=== PATIENT | female | born 1980 | race Caucasian/White ===

== ENCOUNTER 2016-04-21 02:30 | Emergency (ER) | payer OTHER ==
[2016-04-21 03:33] LABS: Add Diff/Slide Review? Slide Review Added; Comments Flag Yes; Hematocrit 44 % (35-47); Hemoglobin 14.4 g/dl (12.0-16.0); Mean Corpuscular HGB Conc 33 g/dl (31-36); Mean Corpuscular Hemoglobin 28 pg (27-31); Mean Corpuscular Volume 84 fL (80-97); Mean Platelet Volume 8 um3 (7.4-10.4); Red Blood Count 5.22 10^6/ul (4.0-5.4); Red Cell Distribution Width 15 % (10.5-15); White Blood Count 10.8 10^3/ul (3.5-10.8)
[2016-04-21 03:43] LABS: ALT 14 U/L (7-52); Albumin 4.1 g/dL (3.2-5.2); Alkaline Phosphatase 68 U/L (34-104); BUN/Creatinine Ratio 13.3 (8-20); Blood Urea Nitrogen 12 mg/dL (6-24); CO2 Carbon Dioxide 22 mmol/L (22-32); Calcium 9.5 mg/dL (8.6-10.3); Chloride 99 mmol/L (101-111); EGFR African American 91.6 (>60); EGFR Non-African American 71.3 (>60); Globulin 3.4 g/dL (2-4); Glucose 349 mg/dL (70-100); Sodium 129 mmol/L (133-145); Total Protein 7.5 g/dL (6.4-8.9)
[2016-04-21 03:45] LABS: Troponin I 0.02 ng/mL (<0.04)
[2016-04-21 04:07] LABS: TSH (Thyroid Stimulating Horm) 7.78 mcIU/mL (0.34-5.60)
--- NOTE | 2016-04-21 04:30 | ED ---
Alison Mccoy Rebecca, scribed for Jaden Felipe MD on 04/21/16 at 0254 . HPI Chest Pain - HPI Summary HPI Summary: Pt is a 35 y/o F who presents to ED c/o CP. Da Silva began suddenly 2 weeks ago and has been intermittent since onset, worsening today. Pain is midsternal without radiation, characterized as tightness and ranked 5/10. Sx aggravated and alleviated by nothing. Additionally c/o SOB, nonproductive cough, blurry vision and facial tingling. Has not been evaluated by her PCP for sx. - History of Current Complaint Chief Complaint: EDGeneral Hx Obtained From: Patient Onset/Duration: Started Weeks Ago - 2 weeks ago, Still Present Timing: Intermittent Initial Severity: Moderate Current Severity: Moderate Pain Intensity: 5 Pain Scale Used: 0-10 Numeric Chest Pain Location: Mid Sternal Chest Pain Radiates: No Character: Tightness Aggravating Factor(s): Nothing Alleviating Factor(s): Nothing Associated Signs and Symptoms: Positive: Vision Changes - blurry, Tingling - facial, Shortness of Breath, Nonproductive Cough - Allergy/Home Medications Allergies/Adverse Reactions: Allergies Allergy/AdvReac Type Severity Reaction Status Date / Time Amoxicillin Allergy Severe Anaphylatic Verified 12/12/15 13:07 Shock Penicillins Allergy Severe Anaphylatic Verified 12/12/15 13:07 Shock PMH/Surg Hx/FS Hx/Imm Hx Endocrine/Hematology History: Reports: Hx Diabetes - TYPE 2 Denies: Hx Thyroid Disease Cardiovascular History: Reports: Hx Hypertension Respiratory History: Denies: Hx Asthma, Hx Chronic Obstructive Pulmonary Disease (COPD) GI History: Denies: Hx Ulcer - Surgical History Surgery Procedure, Year, and Place: . 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 , Hx Shingles Denies: Hx Clostridium Difficile, Hx Hepatitis, Hx Human Immunodeficiency Virus (HIV), Hx Tuberculosis, Hx Known/Suspected VRE, Hx Known/Suspected VRSA, History Other Infectious Disease, Traveled Outside the [place] in Last 30 Days - Family History Known Family History: Positive: Hypertension, Diabetes Negative: Blood Disorder - Social History Alcohol Use: Occasionally Hx Substance Use: No Substance Use Type: Reports: None Substance Use Comment - Amount & Last Used: last used last night Hx Tobacco Use: Yes Smoking Status (MU): Light Every Day Tobacco Smoker Type: Cigarettes Amount Used/How Often: 5 CIG/DAY Length of Time of Smoking/Using Tobacco: 20 years Have You Smoked in the Last Year: Yes Review of Systems Positive: Blurred Vision Positive: Chest Pain - midsternal Positive: Shortness Of Breath, Cough - nonproductive Neurological: Other - Facial tingling All Other Systems Reviewed And Are Negative: Yes Physical Exam Triage Information Reviewed: Yes Vital Signs On Initial Exam: Initial Vitals Temp Pulse Resp BP Pulse Ox 97.2 F 90 16 176/93 100 04/21/16 02:30 04/21/16 02:30 04/21/16 02:30 04/21/16 02:30 04/21/16 02:30 Vital Signs Reviewed: Yes Appearance: Positive: No Pain Distress, Obese Skin: Positive: Warm Eyes: Positive: BELIA ENT: Positive: Hearing grossly normal Neck: Positive: Supple Respiratory/Lung Sounds: Positive: Clear to Auscultation, Breath Sounds Present Cardiovascular: Positive: Normal Abdomen Description: Positive: Nontender, No Organomegaly, Soft Bowel Sounds: Positive: Present Musculoskeletal: Positive: Strength/ROM Intact Neurological: Positive: Sensory/Motor Intact Psychiatric: Positive: Affect/Mood Appropriate Diagnostics - Vital Signs Vital Signs Temp Pulse Resp BP Pulse Ox 04/21/16 02:48 93 15 100 04/21/16 02:46 158/94 04/21/16 02:30 97.2 F 90 16 176/93 100 - Laboratory Lab Results: Lab Results 04/21/16 04/21/16 04/21/16 Range/Units 03:00 03:00 03:00 WBC 10.8 (3.5-10.8) 10^3/ul RBC 5.22 (4.0-5.4) 10^6/ul Hgb 14.4 (12.0-16.0) g/dl Hct 44 (35-47) % MCV 84 (80-97) fL MCH 28 (27-31) pg MCHC 33 (31-36) g/dl RDW 15 (10.5-15) % Plt Count 234 (150-450) 10^3/ul MPV 8 (7.4-10.4) um3 Neut % (Auto) 60.2 (38-83) % Lymph % (Auto) 33.9 (25-47) % [place] % (Auto) 4.6 (1-9) % Eos % (Auto) 1.1 (0-6) % Baso % (Auto) 0.2 (0-2) % Absolute Neuts (auto) 6.5 (1.5-7.7) 10^3/ul Absolute Lymphs (auto) 3.7 (1.0-4.8) 10^3/ul Absolute Monos (auto) 0.5 (0-0.8) 10^3/ul Absolute Eos (auto) 0.1 (0-0.6) 10^3/ul Absolute Basos (auto) 0 (0-0.2) 10^3/ul Absolute Nucleated RBC 0 10^3/ul Nucleated RBC % 0 Sodium 129 L (133-145) mmol/L Potassium TNP Chloride 99 L (101-111) mmol/L Carbon Dioxide 22 (22-32) mmol/L Anion Gap TNP BUN 12 (6-24) mg/dL Creatinine 0.90 (0.51-0.95) mg/dL Est GFR ( Amer) 91.6 (>60) Est GFR (Non-Af Amer) 71.3 (>60) BUN/Creatinine Ratio 13.3 (8-20) Glucose 349 H (70-100) mg/dL Lactic Acid 2.3 H* (0.5-2.0) mmol/L Calcium 9.5 (8.6-10.3) mg/dL Magnesium TNP Total Bilirubin 0.40 (0.2-1.0) mg/dL AST TNP ALT 14 (7-52) U/L Alkaline Phosphatase 68 (34-104) U/L Troponin I 0.02 (<0.04) ng/mL Total Protein 7.5 (6.4-8.9) g/dL Albumin 4.1 (3.2-5.2) g/dL Globulin 3.4 (2-4) g/dL Albumin/Globulin Ratio 1.2 (1-3) TSH 7.78 H (0.34-5.60) mcIU/mL Influenza A (Rapid) (Negative) Influenza B (Rapid) (Negative) 04/21/16 Range/Units 03:30 WBC (3.5-10.8) 10^3/ul RBC (4.0-5.4) 10^6/ul Hgb (12.0-16.0) g/dl Hct (35-47) % MCV (80-97) fL MCH (27-31) pg MCHC (31-36) g/dl RDW (10.5-15) % Plt Count (150-450) 10^3/ul MPV (7.4-10.4) um3 Neut % (Auto) (38-83) % Lymph % (Auto) (25-47) % [place] % (Auto) (1-9) % Eos % (Auto) (0-6) % Baso % (Auto) (0-2) % Absolute Neuts (auto) (1.5-7.7) 10^3/ul Absolute Lymphs (auto) (1.0-4.8) 10^3/ul Absolute Monos (auto) (0-0.8) 10^3/ul Absolute Eos (auto) (0-0.6) 10^3/ul Absolute Basos (auto) (0-0.2) 10^3/ul Absolute Nucleated RBC 10^3/ul Nucleated RBC % Sodium (133-145) mmol/L Potassium Chloride (101-111) mmol/L Carbon Dioxide (22-32) mmol/L Anion Gap BUN (6-24) mg/dL Creatinine (0.51-0.95) mg/dL Est GFR ( Amer) (>60) Est GFR (Non-Af Amer) (>60) BUN/Creatinine Ratio (8-20) Glucose (70-100) mg/dL Lactic Acid (0.5-2.0) mmol/L Calcium (8.6-10.3) mg/dL Magnesium Total Bilirubin (0.2-1.0) mg/dL AST ALT (7-52) U/L Alkaline Phosphatase (34-104) U/L Troponin I (<0.04) ng/mL Total Protein (6.4-8.9) g/dL Albumin (3.2-5.2) g/dL Globulin (2-4) g/dL Albumin/Globulin Ratio (1-3) TSH (0.34-5.60) mcIU/mL Influenza A (Rapid) Negative (Negative) Influenza B (Rapid) Negative (Negative) Result Diagrams: 04/21/16 03:00 04/21/16 04:15 Lab Statement: Any lab studies that have been ordered have been reviewed, and results considered in the medical decision making process. - EKG 0234 Cardiac Rate: NL - 91 bpm EKG Rhythm: Sinus Rhythm EKG Interpretation: RBBB, no acute ischemia Re-Evaluation - Re-Evaluation First Eval Re-Evaluation Time: 04:28 Change: Improved Comment: Pt is feeling significantly better, will be d/c to home. She understands and agrees to plan. Chest Pain Course/Dx - Course Assessment/Plan: Pt is a 35 y/o F who presents to ED with a CC of midsternal CP intermittently for the past 2 weeks. Additionally c/o blurred vision, SOB, facial tingling and nonproductive cough. Pt will be d/c to home with a dx of viral syndrome. - Diagnoses Provider Diagnoses: Viral syndrome Discharge - Discharge Plan Condition: Stable Disposition: HOME Patient Education Materials: Viral Syndrome (ED) Referrals: Santiago BRENNER,Juan Leslie [Primary Care Provider] - 3 Days (Follow up with your primary care physician in 3 days. ) The documentation as recorded by the Alison cunha Rebecca accurately reflects the service I personally performed and the decisions made by me, Jaden Felipe MD.
[2016-04-21 04:35] LABS: Magnesium 1.7 mg/dL (1.9-2.7)
[2016-04-21 04:46] VITALS: BP 157/99
== END 2016-04-21 04:45 | disposition home or self-care (01) ==
LOC: ED 02:30
DX: B34.9 Viral infection, unspecified (principal); I10 Essential (primary) hypertension; E11.9 Type 2 diabetes mellitus without complications; Z88.0 Allergy status to penicillin; F17.210 Nicotine dependence, cigarettes, uncomplicated; I45.10 Unspecified right bundle-branch block
CPT/HCPCS: 36415; 80053; 83605; 83735; 84443; 84484; 85025; 87502; 93005; 99282

== ENCOUNTER 2016-11-02 18:42 | Emergency (ER) | payer OTHER ==
[2016-11-02 18:51] VITALS: BP 141/87
--- NOTE | 2016-11-02 20:19 | UC ---
Bambi Mccoy SooYoung, scribed for John Campos MD on 11/02/16 at 1956 . Abdominal Pain Female HPI - HPI Summary HPI Summary: A 36 y/o F presents to [facility] with c/o umbilical stomach ache for past 5 days. Associated sx: fever maxT of 102 F, chills, n/v/d, malaise, sinus pain onset 1 day. Denies: melena. She states she's been having sulfur smelling burps. She has some Zofran at home which helped but relief didn't last very long. No one else at home is sick. Denies PMHx: colitis. Denies prev abd surgeries other than . Contacted her PCP, but wasn't able to see her. - History of Current Complaint Chief Complaint: UCGeneralIllness Stated Complaint: STOMACH ACHE Time Seen by Provider: 11/02/16 19:53 Hx Obtained From: Patient Hx Last Menstrual Period: 10/07/16 Onset/Duration: Gradual Onset, Lasting Days - onset 5 days ago, Still Present Timing: Constant Severity Currently: Moderate Pain Intensity: 5 Pain Scale Used: 0-10 Numeric Location: Other - umbilical Character: Aching, Dull, Sharp Alleviating Factor(s): Medications - Zofran Associated Signs and Symptoms: Positive: Fever, Nausea, Vomiting, Diarrhea, Other: - pos: chills, malaise. Negative: Blood in Stool Allergies/Adverse Reactions: Allergies Allergy/AdvReac Type Severity Reaction Status Date / Time Amoxicillin Allergy Severe Anaphylatic Verified 12/12/15 13:07 Shock Penicillins Allergy Severe Anaphylatic Verified 12/12/15 13:07 Shock PMH/Surg Hx/FS Hx/Imm Hx Previously Healthy: No Endocrine History: Diabetes Cardiovascular History: Hypertension - Surgical History Surgical History: Yes Surgery Procedure, Year, and Place: . TUBAL LIGATION - Family History Known Family History: Positive: Hypertension, Diabetes Negative: Blood Disorder - Social History Occupation: Employed Full-time Lives: With Family Alcohol Use: Occasionally Alcohol Amount: one can beer every other day Substance Use Type: None Substance Use Comment - Amount & Last Used: last used last night Smoking Status (MU): Light Every Day Tobacco Smoker Type: Cigarettes Amount Used/How Often: 5 CIG/DAY Length of Time of Smoking/Using Tobacco: 20 years Have You Smoked in the Last Year: Yes Household Exposure Type: Cigarettes - Immunization History Most Recent Influenza Vaccination: 2014 Most Recent Tetanus Shot: UTD Most Recent Pneumonia Vaccination: none Review of Systems Constitutional: Fever, Chills, Fatigue - malaise Skin: Negative Eyes: Negative ENT: Negative Respiratory: Negative Cardiovascular: Negative Gastrointestinal: Abdominal Pain, Vomiting, Diarrhea, Nausea, Other - neg: melena Genitourinary: Negative Motor: Negative Neurovascular: Negative Musculoskeletal: Negative Neurological: Negative Psychological: Negative All Other Systems Reviewed And Are Negative: Yes Physical Exam Triage Information Reviewed: Yes Appearance: No Pain Distress, Ill-Appearing - mildly Vital Signs: Initial Vital Signs Temp 97.5 F 11/02/16 18:48 Pulse 93 11/02/16 18:48 Resp 17 11/02/16 18:48 BP 141/87 11/02/16 18:48 Pulse Ox 100 11/02/16 18:48 Vital Signs Reviewed: Yes Eyes: Positive: Other: - EOMI/BELIA ENT: Positive: Hearing grossly normal Neck: Positive: Supple, Nontender Respiratory: Positive: Chest non-tender, Lungs clear, Normal breath sounds Cardiovascular: Positive: RRR Abdomen Description: Positive: Soft, Other: - minimal epigastric tenderness Bowel Sounds: Positive: Present Musculoskeletal: Positive: Strength Intact, ROM Intact Neurological Exam: Normal - sensory/motor intact Neurological: Positive: Alert - A&Ox3 Psychological: Positive: Age Appropriate Behavior Skin Exam: Normal - warm, dry, color reflects adequate perfusion Abd Pain Female Course/Dx - Course Course Of Treatment: Pt medications reviewed this visit. Elevated BP but has current hypertension diagnosis. DUE TO FEVER AND DURATION OF SX, WILL TREAT WITH CIPRO 500MG PO BID X 5 DAYS. F/U PMD. PATIENT WILL GO TO ED IF WORSE. - Differential Dx/Diagnosis Provider Diagnoses: DEHYDRATION. VOMITING AND DIARRHEA WITH FEVER X 5 DAYS. Discharge - Discharge Plan Condition: Stable Disposition: HOME Prescriptions: Ciprofloxacin TAB* [Cipro 500 MG TAB*] 500 mg PO BID #10 tab Ondansetron ODT TAB* [Zofran 4 MG Odt TAB*] 4 mg PO Q6H PRN #10 tab.odt PRN Reason: Nausea Patient Education Materials: Acute Nausea and Vomiting (ED), Acute Diarrhea (ED ), Fever in Adults (ED) Forms: *Work Release Referrals: Santiago BRENNER,Juan Leslie [Primary Care Provider] - Additional Instructions: FOLLOW UP WITH YOUR DOCTOR. GO TO THE EMERGENCY DEPARTMENT FOR ANY WORSENING OF YOUR CONDITION; PAIN, FEVER , DEHYDRATION OR QUESTIONS OR CONCERNS. The documentation as recorded by the Bambi cunha SooYoung accurately reflects the service I personally performed and the decisions made by me, John Campos MD.
== END 2016-11-02 20:17 | disposition home or self-care (01) ==
LOC: UCEAST 18:42
DX: E86.0 Dehydration (principal); R11.10 Vomiting, unspecified; R19.7 Diarrhea, unspecified; R50.9 Fever, unspecified; E11.9 Type 2 diabetes mellitus without complications; I10 Essential (primary) hypertension; Z88.0 Allergy status to penicillin; F17.210 Nicotine dependence, cigarettes, uncomplicated
CPT/HCPCS: 99211; G0463

== ENCOUNTER 2016-11-06 11:32 | Emergency (ER) | payer OTHER ==
[2016-11-06 12:21] VITALS: BP 130/85
--- NOTE | 2016-11-06 12:55 | UC ---
Abdominal Pain Female HPI - HPI Summary HPI Summary: Nausea with loss of appetite starting 10 days ago, vomting multiple times per day starting 7 days ago. All recent vomiting has been bilious, denies blood in vomit or stool. No melena. Reports fever and chills without clear measurement of time or temperature. Seen here about 5 days ago, rx with cipro and zofran. Went to [facility] ED 2 days ago because of uncontrolled vomiting, contrast CT and abd US were negative. Returns here today because sx feel no better. Marked epigastric pain with bilious vomiting x 2 today. - History of Current Complaint Chief Complaint: UCGI Stated Complaint: ABD PAIN Time Seen by Provider: 11/06/16 12:40 Hx Obtained From: Patient Hx Last Menstrual Period: 09/2716 ?: No Onset/Duration: Gradual Onset, Lasting Weeks Timing: Constant Severity Initially: Mild Severity Currently: Moderate Location: Epigastric Radiates: No Character: Aching, Burning, Cramping, Sharp Aggravating Factor(s): Food, Movement Alleviating Factor(s): Nothing Associated Signs and Symptoms: Positive: Fever, Nausea, Vomiting. Negative: Blood in Stool, Urinary Symptoms Allergies/Adverse Reactions: Allergies Allergy/AdvReac Type Severity Reaction Status Date / Time Amoxicillin Allergy Severe Anaphylatic Verified 11/06/16 12:21 Shock Penicillins Allergy Severe Anaphylatic Verified 11/06/16 12:21 Shock PMH/Surg Hx/FS Hx/Imm Hx - Additional Past Medical History Additional PMH: Hx MRSA Endocrine History: Diabetes - Surgical History Surgical History: Yes Surgery Procedure, Year, and Place: . TUBAL LIGATION - Family History Known Family History: Positive: Hypertension, Diabetes Negative: Blood Disorder - Social History Alcohol Use: Occasionally Alcohol Amount: one can beer every other day Substance Use Type: None Substance Use Comment - Amount & Last Used: last used last night Smoking Status (MU): Light Every Day Tobacco Smoker Type: Cigarettes Amount Used/How Often: 5 CIG/DAY Length of Time of Smoking/Using Tobacco: 20 years Have You Smoked in the Last Year: Yes Household Exposure Type: Cigarettes - Immunization History Most Recent Influenza Vaccination: 2014 Most Recent Tetanus Shot: UTD Most Recent Pneumonia Vaccination: none Review of Systems Constitutional: Fever, Chills, Fatigue Skin: Negative Eyes: Negative ENT: Negative Respiratory: Negative Cardiovascular: Negative Gastrointestinal: Abdominal Pain, Vomiting, Nausea Genitourinary: Negative Motor: Negative Neurovascular: Negative Musculoskeletal: Negative Neurological: Negative Psychological: Negative All Other Systems Reviewed And Are Negative: Yes Physical Exam Triage Information Reviewed: Yes Appearance: Obese Vital Signs: Initial Vital Signs Temp 96.7 F 11/06/16 12:17 Pulse 96 11/06/16 12:17 Resp 18 11/06/16 12:17 BP 130/85 11/06/16 12:17 Pulse Ox 100 11/06/16 12:17 Vital Signs Reviewed: Yes Eye Exam: Normal, Other - PERRL Eyes: Positive: Conjunctiva Clear ENT Exam: Normal ENT: Positive: Normal ENT inspection, Hearing grossly normal, Pharynx normal, TMs normal Dental: Negative: Percussion Tenderness @, Dental Fracture @ Neck exam: Normal Respiratory Exam: Normal Respiratory: Positive: Chest non-tender, Lungs clear, Normal breath sounds, No respiratory distress, No accessory muscle use Cardiovascular: Positive: RRR - high 90s on exam Abdominal Exam: Other - exam limited by obesity Abdomen Description: Positive: No Organomegaly, Soft. Negative: CVA Tenderness (R), CVA Tenderness (L) Musculoskeletal Exam: Normal Neurological Exam: Normal Neurological: Positive: Alert Psychological Exam: Normal Skin Exam: Other - sweaty Abd Pain Female Course/Dx - Course Course Of Treatment: blood glucose of 350 noted - Differential Dx/Diagnosis Provider Diagnoses: Abdominal pain. bilious vomiting - Physician Notification/Consults Discussed Care of Patient With: John Campos Time Discussed With Above Provider: 12:50 Discharge - Discharge Plan Condition: Stable Disposition: OTHER Discharge Disposition Comment: Going to [facility] Patient Education Materials: Acute Abdominal Pain (ED) Forms: *Work Release Referrals: Santiago BRENNER,Juan Leslie [Primary Care Provider] - Additional Instructions: Please go to the emergency department as we discussed for further testing.
== END 2016-11-06 13:00 | disposition home or self-care (01) ==
LOC: UCEAST 11:32
DX: R11.14 Bilious vomiting (principal); R50.9 Fever, unspecified; E11.9 Type 2 diabetes mellitus without complications; E66.9 Obesity, unspecified; Z88.0 Allergy status to penicillin; F17.210 Nicotine dependence, cigarettes, uncomplicated
CPT/HCPCS: 99211; G0463

== ENCOUNTER 2017-01-10 08:43 | Emergency (ER) | payer OTHER ==
[2017-01-10 11:14] VITALS: BP 145/86
--- NOTE | 2017-01-10 14:56 | UC ---
Otto Mccoy Angela, scribed for Gretchen Root DO on 01/10/17 at 1016 . Back Pain HPI - HPI Summary HPI Summary: This pt is a 36 y/o female presenting to [facility] c/o lower left sided back pain x3 days. Pt additionally c/o lower abd pain. She states she has had pain like this before (bladder infection). She notes increased urinary frequency. Pt denies pain with urination, color change in urine, hematuria. She states some nausea but denies vomiting, fever, cough. Pt has a sore throat for 3 days. She states she currently has a yeast infection with white vaginal discharge. Pt has had 1 UTI in the past year. PMHx: type 2 DM. Pt states she is a current every day smoker (4 cigarettes/day) and is trying to cut down (before used to smoke 1 ppd). Allergies: amoxicillin, penicillin. - History of Current Complaint Chief Complaint: UCBackPain Stated Complaint: LOWER BACK PAIN Time Seen by Provider: 01/10/17 10:08 Hx Obtained From: Patient Hx Last Menstrual Period: 12/18/16 ?: No Onset/Duration: Lasting Days, Still Present Timing: Lasting Days Severity Initially: Moderate Severity Currently: Moderate Pain Intensity: 7 Pain Scale Used: 0-10 Numeric Back Pain: Is Discrete @ - left sided back Character: Dull, Aching Aggravating Factor(s): Nothing Alleviating Factor(s): Rest Associated Signs And Symptoms: Positive: Abdominal Pain - lower, Other - increased urinary frequenct, nausea, yeast infection. Negative: Fever, Weakness , Numbness, Tingling - Allergies/Home Medications Allergies/Adverse Reactions: Allergies Allergy/AdvReac Type Severity Reaction Status Date / Time Amoxicillin Allergy Severe Anaphylatic Verified 01/10/17 08:51 Shock Penicillins Allergy Severe Anaphylatic Verified 01/10/17 08:51 Shock PMH/Surg Hx/FS Hx/Imm Hx Endocrine History: Diabetes - type 2 Cardiovascular History: Hypertension Respiratory History: Asthma - Surgical History Surgical History: Yes Surgery Procedure, Year, and Place: . TUBAL LIGATION - Family History Known Family History: Positive: Cardiac Disease, Hypertension, Diabetes Negative: Blood Disorder - Social History Alcohol Use: Occasionally Alcohol Amount: one can beer every other day Substance Use Type: None Substance Use Comment - Amount & Last Used: last used last night Smoking Status (MU): Light Every Day Tobacco Smoker Type: Cigarettes Amount Used/How Often: 5 CIG/DAY Length of Time of Smoking/Using Tobacco: 20 years Have You Smoked in the Last Year: Yes Household Exposure Type: Cigarettes Cessation Counseling: Patient Advised to Stop - Immunization History Most Recent Influenza Vaccination: 2014 Most Recent Tetanus Shot: UTD Most Recent Pneumonia Vaccination: none Review of Systems Constitutional: Negative Skin: Negative Eyes: Negative ENT: Sore Throat Respiratory: Negative Cardiovascular: Negative Gastrointestinal: Abdominal Pain - lower, Nausea, Other - NEG: vomiting Genitourinary: Frequency, Vaginal/Penile Discharge - yeast infection, Other - NEG: dysuria, hematuria, color change in urine Motor: Negative Neurovascular: Negative Musculoskeletal: Other: - left sided back pain Neurological: Negative Psychological: Negative All Other Systems Reviewed And Are Negative: Yes Physical Exam Triage Information Reviewed: Yes Appearance: Well-Appearing, No Pain Distress, Well-Nourished Vital Signs: Initial Vital Signs Temp 97 F 01/10/17 08:52 Pulse 86 01/10/17 08:52 Resp 18 01/10/17 08:52 Pulse Ox 100 01/10/17 08:52 Vital Signs Reviewed: Yes Eyes: Positive: Conjunctiva Clear. Negative: Discharge ENT: Positive: Hearing grossly normal, Pharyngeal erythema, TMs normal, Other: - nasal mucosa is pale and boggy.. Negative: Tonsillar swelling, Tonsillar exudate, Muffled/hoarse voice Neck exam: Normal Neck: Positive: Supple Respiratory: Positive: Lungs clear, Normal breath sounds, No respiratory distress, No accessory muscle use Cardiovascular: Positive: RRR, No Murmur Abdomen Description: Positive: Soft, CVA Tenderness (R), CVA Tenderness (L), Other: - diffuse tenderness worst over suprapubic. Negative: Distended, Guarding, McBurney's Point Tenderness Musculoskeletal Exam: Normal Neurological: Positive: Alert, Muscle Tone Normal Psychological Exam: Normal Psychological: Positive: Age Appropriate Behavior Skin Exam: Normal Skin: Positive: Other - warm, dry, normal color Back Pain Course/Dx - Course Course Of Treatment: Medications reviewed this visit. The patient has been encouraged to quit smoking. High blood pressure noted, pt has PMHx of HTN. Urine dip shows 3+ glucose, blood, and leukocytes. - Differential Dx/Diagnosis Provider Diagnoses: UTI. Elevated BP with diagnosis of HTN. Discharge - Discharge Plan Condition: Stable Disposition: HOME Prescriptions: Fluconazole [Diflucan] 150 mg PO ONCE #2 tab Nitrofurantoin Monohyd Macro [Macrobid] 100 mg PO BID #14 cap Patient Education Materials: Urinary Tract Infection in Women (ED), Vulvovaginal Candidiasis (ED) Forms: *Work Release Referrals: Santiago BRENNER,Juan Leslie [Primary Care Provider] - (FOLLOW UP IN 2 DAYS IF NOT IMPROVING. OTHERWISE FOLLOW UP IN 2 WEEKS.) Additional Instructions: Your blood pressure was elevated at this visit. Please follow up with your primary care provider. NITROFURANTOIN: You have received a prescription for nitrofurantoin (Macrodantin). This antibiotic is used for urinary tract infections. Persons with G-6-PD (glucose 6-phosphate dehydrogenase) deficiency should not take this medication. Women who are or nursing should notify the physician before taking this medicine. If you have ever had a problem caused by this medication in the past, be sure the physician is aware of it. Common side effects of this medicine include nausea, vomiting, or decreased appetite. Notify your physician if these side effects become severe. Immediately stop this medicine and call the physician if you develop cough , shortness of breath, chest pain, weakness, jaundice (yellow color of the skin and whites of the eyes), or a skin rash. ANYTIME YOU TAKE AN ANTIBIOTIC, IT IS IMPORTANT TO REPLENISH THE BODY'S SUPPLY OF "GOOD BACTERIA." YOU CAN GET GOOD BACTERIA FROM HIGH QUALITY CULTURED FOODS SUCH LOCAL YOGURT, SOUR KRAUT, CARIE NAN, NATURALLY FERMENTED PICKLES AND PROBIOTIC DRINKS. YOU CAN ALSO GET GOOD BACTERIA FROM A PROBIOTIC SUPPLEMENT. FLUCONAZOLE: Fluconazole (Diflucan) is an antifungal drug. It is useful for serious fungal infections, but is also excellent for oral or vaginal yeast infections. Diflucan interacts with some medicines. This is a concern if you are taking anticoagulants (such as Coumadin), phenytoin (Dilantin), cyclosporin, or oral hypoglycemics (such as tolbutamide, Orinase, glipizide, Glucotrol, glyburide, DiaBeta, Glynase, and Micronase). Be sure the doctor knows if you are taking one of these medicines. We don't know how Diflucan affects . If you are planning to become , discuss this with your doctor. Diflucan has few side effects. Minor side effects may include nausea, headache, or diarrhea. Call the doctor if you develop a skin rash, shortness of breath, or other new symptoms. The documentation as recorded by the Otto cunha Angela accurately reflects the service I personally performed and the decisions made by me, Gretchen Root DO.
== END 2017-01-10 10:55 | disposition home or self-care (01) ==
LOC: UCEAST 08:43
DX: N39.0 Urinary tract infection, site not specified (principal); E11.9 Type 2 diabetes mellitus without complications; I10 Essential (primary) hypertension; J45.909 Unspecified asthma, uncomplicated; F17.210 Nicotine dependence, cigarettes, uncomplicated; R03.0 Elevated blood-pressure reading, without diagnosis of hypertension
CPT/HCPCS: 81003; 87086; 99212; G0463

== ENCOUNTER 2018-05-11 15:01 | Emergency (ER) | payer OTHER ==
[2018-05-11 15:25] VITALS: BP 129/79
--- NOTE | 2018-05-11 16:23 | UC ---
Throat Pain/Nasal Luke HPI - HPI Summary HPI Summary: 37 yo female presents with sinus pain/pressure/congestion, feeling feverish, and b/l earache for the last 4-5 days. She has been taking ibuprofen and dayquill/nyquill with no relief. Has not taken her temperature. Denies cough, SOB, rash, n/v, or body aches. - History of Current Complaint Chief Complaint: UCRespiratory Stated Complaint: COUGH Time Seen by Provider: 05/11/18 15:40 Hx Obtained From: Patient Hx Last Menstrual Period: none Onset/Duration: Sudden Onset Severity: Severe Pain Intensity: 8 Pain Scale Used: 0-10 Numeric - Allergies/Home Medications Allergies/Adverse Reactions: Allergies Allergy/AdvReac Type Severity Reaction Status Date / Time Penicillins Allergy Anaphylatic Verified 05/11/18 15:26 Shock Home Medications: Home Medications Fluconazole [Diflucan] 150 mg PO ONCE PRN 05/11/18 [History Confirmed 05/11/18] PMH/Surg Hx/FS Hx/Imm Hx Respiratory History: Asthma Psychological History: Anxiety - Surgical History Surgical History: Yes Surgery Procedure, Year, and Place: . TUBAL LIGATION. Hysterectomy - Family History Known Family History: Positive: Cardiac Disease, Hypertension, Diabetes Negative: Blood Disorder - Social History Occupation: Employed Full-time Lives: With Family Alcohol Use: None Alcohol Amount: one can beer every other day Substance Use Type: None Substance Use Comment - Amount & Last Used: last used last night Smoking Status (MU): Light Every Day Tobacco Smoker Type: Cigarettes Amount Used/How Often: 5 CIG/DAY Length of Time of Smoking/Using Tobacco: 20 years Have You Smoked in the Last Year: Yes Household Exposure Type: Cigarettes - Immunization History Most Recent Influenza Vaccination: 2014 Most Recent Tetanus Shot: UTD Most Recent Pneumonia Vaccination: none Review of Systems All Other Systems Reviewed And Are Negative: Yes Constitutional: Positive: Negative Skin: Positive: Negative Eyes: Positive: Negative ENT: Positive: Ear Ache, Nasal Discharge, Sinus Congestion, Sinus Pain/ Tenderness Respiratory: Positive: Negative Cardiovascular: Positive: Negative Gastrointestinal: Positive: Negative Neurological: Positive: Negative Psychological: Positive: Negative Physical Exam - Summary Physical Exam Summary: GENERAL: NAD. WDWN. No pain distress. SKIN: No rashes, sores, lesions, or open wounds. HEENT: Head: AT/NC Eyes: EOM intact. Conjunctiva clear without inflammation or discharge. Ears: Hearing grossly normal. TMs intact, no bulging, erythema, or edema. Nose: Nasal mucosa mildly swollen and erythematous with yellow/ clear discharge. TTP maxillary > frontal sinus. Positive post nasal drip Throat: Posterior oropharynx without exudates, erythema, or tonsillar enlargement. Uvula midline. NECK: Supple. Nontender. No lymphadenopathy. CHEST: CTAB. No r/r/w. No accessory muscle use. Breathing comfortably and in no distress. CV: RRR. Without m/r/g. Pulses intact. NEURO: Alert. PSYCH: Age appropriate behavior. Triage Information Reviewed: Yes Vital Signs: Initial Vital Signs Temp 97.2 F 05/11/18 15:20 Pulse 113 05/11/18 15:20 Resp 20 05/11/18 15:20 BP 129/79 05/11/18 15:20 Pulse Ox 100 05/11/18 15:20 Laboratory Tests 05/11/18 16:20 Influenza A (Rapid) Negative Influenza B (Rapid) Negative Vital Signs Reviewed: Yes Throat Pain/Nasal Course/Dx - Course Course Of Treatment: Sinusitis - Differential Dx/Diagnosis Provider Diagnosis: Sinusitis Discharge - Sign-Out/Discharge Documenting (check all that apply): Patient Departure All imaging exams completed and their final reports reviewed: No Studies - Discharge Plan Condition: Stable Disposition: HOME Prescriptions: Azithromycin TAB* [Zithromax TAB (Z-LOUISE) 250 mg #6 tabs] 2 tab PO .TODAY, THEN 1 DAILY #1 louise Patient Education Materials: Sinusitis (ED) Referrals: Santiago BRENNER,Juan Leslie [Primary Care Provider] - Additional Instructions: If you develop a fever, shortness of breath, chest pain, new or worsening symptoms - please call your PCP or go to the ED. - Billing Disposition and Condition Condition: STABLE Disposition: Home - Attestation Statements Provider Attestation: I was available for consult. This patient was seen by the ELIO. The patient was not presented to, seen by, or examined by me. -Diana
[2018-05-11 16:32] LABS: Influenza A Molecular NEGATIVE (Negative); Influenza B Molecular NEGATIVE (Negative)
== END 2018-05-11 16:45 | disposition home or self-care (01) ==
LOC: UCEAST 15:01
DX: J32.9 Chronic sinusitis, unspecified (principal); F17.210 Nicotine dependence, cigarettes, uncomplicated; J45.909 Unspecified asthma, uncomplicated; Z88.0 Allergy status to penicillin
CPT/HCPCS: 99212; G0463